=== PATIENT | female | born 1945 | race Two or more races ===

== ENCOUNTER → 2017-08-12 06:38 | Outpatient (CLI) | payer OTHER | END | disposition home or self-care (01) | LOC: LAB 06:38 | DX: D68.61 Antiphospholipid syndrome (principal); E72.11 Homocystinuria; E72.12 Methylenetetrahydrofolate reductase deficiency; D68.59 Other primary thrombophilia; D51.3 Other dietary vitamin B12 deficiency anemia; E78.2 Mixed hyperlipidemia; E03.8 Other specified hypothyroidism; D50.8 Other iron deficiency anemias; D51.8 Other vitamin B12 deficiency anemias; I10 Essential (primary) hypertension; E55.9 Vitamin D deficiency, unspecified ==

== ENCOUNTER 2017-11-04 10:54 | Outpatient (CLI) | payer OTHER | END 2017-11-04 10:55 | disposition home or self-care (01) | LOC: MAMO-SONO 10:54 | DX: Z12.31 Encounter for screening mammogram for malignant neoplasm of breast (principal); Z87.898 Personal history of other specified conditions; N60.19 Diffuse cystic mastopathy of unspecified breast; D68.61 Antiphospholipid syndrome; E72.11 Homocystinuria; E72.12 Methylenetetrahydrofolate reductase deficiency; D68.59 Other primary thrombophilia; D51.3 Other dietary vitamin B12 deficiency anemia; E78.2 Mixed hyperlipidemia; E03.8 Other specified hypothyroidism; M85.88 Other specified disorders of bone density and structure, other site; N63.10 Unspecified lump in the right breast, unspecified quadrant; N63.11 Unspecified lump in the right breast, upper outer quadrant ==

== ENCOUNTER 2017-11-19 12:56 | Outpatient (CLI) | payer OTHER | END 2017-11-19 16:24 | disposition home or self-care (01) | LOC: TOM 12:56 | DX: J32.0 Chronic maxillary sinusitis (principal) ==

== ENCOUNTER 2017-12-22 10:31 | Outpatient (CLI) | payer OTHER | END 2017-12-22 10:37 | disposition home or self-care (01) | LOC: RAD 10:31 | DX: M25.561 Pain in right knee (principal); M25.562 Pain in left knee ==

== ENCOUNTER → 2018-02-04 06:51 | Outpatient (CLI) | payer OTHER | END | disposition home or self-care (01) | LOC: LAB 06:51 | DX: D68.61 Antiphospholipid syndrome (principal); E72.12 Methylenetetrahydrofolate reductase deficiency; D51.3 Other dietary vitamin B12 deficiency anemia; E78.2 Mixed hyperlipidemia; E03.8 Other specified hypothyroidism; M85.88 Other specified disorders of bone density and structure, other site; D50.8 Other iron deficiency anemias; D51.1 Vitamin B12 deficiency anemia due to selective vitamin B12 malabsorption with proteinuria; D51.0 Vitamin B12 deficiency anemia due to intrinsic factor deficiency; E55.9 Vitamin D deficiency, unspecified; K90.89 Other intestinal malabsorption; E11.65 Type 2 diabetes mellitus with hyperglycemia; D68.8 Other specified coagulation defects; D64.89 Other specified anemias; Z12.11 Encounter for screening for malignant neoplasm of colon ==

== ENCOUNTER 2018-03-16 06:42 | Outpatient (CLI) | payer OTHER | END 2018-03-16 07:03 | disposition home or self-care (01) | LOC: LAB 06:42 | DX: Z01.810 Encounter for preprocedural cardiovascular examination (principal); Z01.812 Encounter for preprocedural laboratory examination ==

== ENCOUNTER 2018-05-20 07:02 | Outpatient (CLI) | payer OTHER | END 2018-05-20 07:08 | disposition home or self-care (01) | LOC: LAB 07:02 | DX: H25.11 Age-related nuclear cataract, right eye (principal); Z01.810 Encounter for preprocedural cardiovascular examination; Z79.01 Long term (current) use of anticoagulants ==

== ENCOUNTER 2018-07-09 06:44 | Outpatient (CLI) | payer OTHER | END 2018-07-09 06:50 | disposition home or self-care (01) | LOC: LAB 06:44 | DX: E78.2 Mixed hyperlipidemia (principal); D64.89 Other specified anemias; N39.0 Urinary tract infection, site not specified; Z12.11 Encounter for screening for malignant neoplasm of colon; E03.8 Other specified hypothyroidism; D64.0 Hereditary sideroblastic anemia ==

== ENCOUNTER 2018-12-24 07:01 | Outpatient (CLI) | payer OTHER | END 2018-12-24 07:09 | disposition home or self-care (01) | LOC: LAB 07:01 | DX: E03.8 Other specified hypothyroidism (principal); E11.65 Type 2 diabetes mellitus with hyperglycemia; E11.21 Type 2 diabetes mellitus with diabetic nephropathy; E78.2 Mixed hyperlipidemia ==

== ENCOUNTER 2018-12-30 12:39 | Outpatient (CLI) | payer OTHER | END 2018-12-30 12:43 | disposition home or self-care (01) | LOC: LAB 12:39 | DX: D64.89 Other specified anemias (principal) ==

== ENCOUNTER 2019-03-24 06:49 | Outpatient (CLI) | payer OTHER | END 2019-03-24 06:54 | disposition home or self-care (01) | LOC: LAB 06:49 | DX: E03.8 Other specified hypothyroidism (principal); E78.2 Mixed hyperlipidemia; D64.89 Other specified anemias; D68.8 Other specified coagulation defects ==

== ENCOUNTER → 2019-05-01 | Emergency (ER) | payer OTHER ==
[~2019-05-01] VITALS: Ht 154.9 cm; Wt 62.6 kg
[~2019-05-01] MED LIST: ASPIR 8181 MG; NASAL MIST126 ML; SYNTHROID75 MCG; SYNTHROID88 MCG
== END | disposition left against medical advice (07) ==
LOC: ER 22:39
DX: Z53.20 Procedure and treatment not carried out because of patient's decision for unspecified reasons (principal)

== ENCOUNTER → 2019-05-02 | Outpatient (CLI) | payer OTHER | END | disposition home or self-care (01) | LOC: RAD 11:26 | DX: J44.1 Chronic obstructive pulmonary disease with (acute) exacerbation (principal) ==

== ENCOUNTER 2019-05-13 06:14 | Outpatient (CLI) | payer OTHER | END 2019-05-13 07:08 | disposition home or self-care (01) | LOC: LAB 06:14 | DX: A49.3 Mycoplasma infection, unspecified site (principal) ==

== ENCOUNTER 2020-02-28 07:31 | Outpatient (CLI) | payer OTHER | END 2020-02-28 07:35 | disposition home or self-care (01) | LOC: LAB 07:31 | PROVIDERS: ATTEND Specialist | DX: E11.65 Type 2 diabetes mellitus with hyperglycemia (principal); N39.0 Urinary tract infection, site not specified; D64.89 Other specified anemias; D68.8 Other specified coagulation defects ==

== ENCOUNTER 2020-03-06 12:46 | Outpatient (CLI) | payer OTHER | END 2020-03-06 13:09 | disposition home or self-care (01) | LOC: MAMO-SONO 12:46 | PROVIDERS: ATTEND Specialist | DX: Z12.31 Encounter for screening mammogram for malignant neoplasm of breast (principal); N60.01 Solitary cyst of right breast; N64.59 Other signs and symptoms in breast ==

== ENCOUNTER 2020-06-11 06:43 | Outpatient (CLI) | payer OTHER | END 2020-06-11 06:56 | disposition home or self-care (01) | LOC: LAB 06:43 | PROVIDERS: ATTEND Internal Medicine Cardiovascular Disease | DX: E78.2 Mixed hyperlipidemia (principal) ==

== ENCOUNTER 2020-09-11 13:48 | Outpatient (CLI) | payer OTHER | END 2020-09-11 13:51 | disposition home or self-care (01) | LOC: LAB 13:48 | PROVIDERS: ATTEND Physical Medicine & Rehabilitation | DX: R05 Cough (principal); R50.9 Fever, unspecified; R06.1 Stridor; R06.02 Shortness of breath; Z03.818 Encounter for observation for suspected exposure to other biological agents ruled out; J12.82 Pneumonia due to coronavirus disease 2019; M35.81 Multisystem inflammatory syndrome; M35.89 Other specified systemic involvement of connective tissue; Z11.52 Encounter for screening for COVID-19; Z20.822 Contact with and (suspected) exposure to COVID-19 ==

== ENCOUNTER → 2020-09-18 | Outpatient (CLI) | payer OTHER | END | disposition home or self-care (01) | LOC: MAMO-SONO 11:00 → SONOGRAMA 11:05 → MAMO-SONO 09-19 15:15 | PROVIDERS: ATTEND Physical Medicine & Rehabilitation | DX: M25.512 Pain in left shoulder (principal) ==

== ENCOUNTER 2020-10-29 07:18 | Outpatient (CLI) | payer OTHER | END 2020-10-29 07:20 | disposition home or self-care (01) | LOC: LAB 07:18 | PROVIDERS: ATTEND Specialist | DX: E03.8 Other specified hypothyroidism (principal); D64.89 Other specified anemias; D68.8 Other specified coagulation defects; E72.11 Homocystinuria; E11.9 Type 2 diabetes mellitus without complications; E78.1 Pure hyperglyceridemia ==

== ENCOUNTER 2021-01-14 08:00 | Outpatient (CLI) | payer OTHER | END 2021-01-14 08:30 | disposition home or self-care (01) | LOC: PPH VACUNA 08:00 | PROVIDERS: ATTEND Emergency Medicine Pediatric Emergency Medicine | DX: Z23 Encounter for immunization (principal) ==

== ENCOUNTER 2021-01-25 07:13 | Outpatient (CLI) | payer OTHER | END 2021-01-25 07:33 | disposition home or self-care (01) | LOC: NUCLEAR 07:13 | PROVIDERS: ATTEND Internal Medicine Cardiovascular Disease | DX: I50.1 Left ventricular failure, unspecified (principal) | CPT/HCPCS: 78452; 93017; A9500; J0153 ==

== ENCOUNTER → 2021-05-13 | Outpatient (CLI) | payer OTHER | END | disposition home or self-care (01) | LOC: SONOGRAMA 13:05 | DX: E04.2 Nontoxic multinodular goiter (principal) ==

== ENCOUNTER 2021-05-15 07:36 | Outpatient (CLI) | payer OTHER | END 2021-05-15 07:43 | disposition home or self-care (01) | LOC: LAB 07:36 | PROVIDERS: ATTEND Internal Medicine | DX: E03.8 Other specified hypothyroidism (principal); E78.5 Hyperlipidemia, unspecified; I10 Essential (primary) hypertension; E11.65 Type 2 diabetes mellitus with hyperglycemia; E55.9 Vitamin D deficiency, unspecified ==

== ENCOUNTER 2021-07-24 09:11 | Outpatient (CLI) | payer OTHER | END 2021-07-24 09:18 | disposition home or self-care (01) | LOC: RAD 09:11 | PROVIDERS: ATTEND Internal Medicine Pulmonary Disease | DX: J45.20 Mild intermittent asthma, uncomplicated (principal); R05.9 Cough, unspecified ==

== ENCOUNTER 2021-07-30 14:10 | Outpatient (CLI) | payer OTHER | END 2021-07-30 14:30 | disposition home or self-care (01) | LOC: PPH VACUNA 14:10 | PROVIDERS: ATTEND Emergency Medicine Pediatric Emergency Medicine | DX: Z23 Encounter for immunization (principal) ==

== ENCOUNTER 2021-08-05 12:42 | Outpatient (CLI) | payer OTHER | END 2021-08-05 12:43 | disposition home or self-care (01) | LOC: NUCLEAR 12:42 | PROVIDERS: ATTEND Specialist | DX: M81.0 Age-related osteoporosis without current pathological fracture (principal) ==

== ENCOUNTER 2021-11-15 06:45 | Outpatient (CLI) | payer OTHER | END 2021-11-15 06:46 | disposition home or self-care (01) | LOC: LAB 06:45 | PROVIDERS: ATTEND Internal Medicine | DX: E55.9 Vitamin D deficiency, unspecified (principal); E11.65 Type 2 diabetes mellitus with hyperglycemia; E78.5 Hyperlipidemia, unspecified; I10 Essential (primary) hypertension; E03.8 Other specified hypothyroidism ==

== ENCOUNTER 2022-09-05 | Outpatient (CLI) | payer OTHER | END 2022-09-05 00:15 | disposition home or self-care (01) | LOC: PPH VACUNA | PROVIDERS: ATTEND Emergency Medicine Pediatric Emergency Medicine | DX: Z23 Encounter for immunization (principal) ==

== ENCOUNTER 2023-08-04 10:08 | Outpatient (CLI) | payer OTHER | END 2023-08-04 10:09 | disposition home or self-care (01) | LOC: NUCLEAR 10:08 | PROVIDERS: ATTEND Internal Medicine Cardiovascular Disease | DX: I82.401 Acute embolism and thrombosis of unspecified deep veins of right lower extremity (principal) ==

== ENCOUNTER 2023-08-05 08:45 | Outpatient (CLI) | payer OTHER ==
[2023-08-05 09:27] LABS: HEMATOCRIT 34.9 % (36.0-45.00); HEMOGLOBIN 11.5 g/dL (12.0-15.00); MEAN CELL VOLUME 85.8 fL (80.00-100.00); MEAN CORPUSCULAR HEMOGLOBIN 28.2 pg (27.00-32.0); MEAN CORPUSCULAR HGB CONC 32.9 g/dl (32.0-36.0); PLATELET COUNT 191 K/uL (150-450); RED BLOOD COUNT 4.07 M/uL (4.00-6.00); RED CELL DISTRIBUTION WIDTH 13.7 % (11.5-14.5)
[2023-08-05 10:02] LABS: ALBUMIN 3.5 gm/dL (3.4-5.0); BILIRUBIN TOTAL 0.61 mg/dL (0.3-1.2); CHOL HDL RATIO 2.6 (0-5.0); CREATININE SERUM 0.95 mg/dL (0.55-1.02); GFR 56.6; GLOBULINA 3.1 G/DL (2.4-3.5); POTASSIUM 4.54 mEq/L (3.5-5.1); T4 FREE 1.11 NG/ML (0.76-1.46); TOTAL PROTEIN 6.6 gm/dL (6.4-8.2); TSH 2.38 uIU/mL (0.358-3.74)
== END 2023-08-05 08:58 | disposition home or self-care (01) ==
LOC: LAB 08:45
PROVIDERS: ATTEND Internal Medicine
DX: E78.5 Hyperlipidemia, unspecified (principal); E03.8 Other specified hypothyroidism; I10 Essential (primary) hypertension